=== PATIENT | male | born 1965 | race Two or more races ===

== ENCOUNTER 2023-02-24 11:36 | Emergency (ER) | payer OTHER ==
[~2023-02-24] VITALS: Ht 180.3 cm; Wt 82.0 kg
[2023-02-24 11:58] VITALS: TEMP 98; O2SAT 98
[2023-02-24 12:03] VITALS: BP 112/86; PULSE 95; RESP 17
[2023-02-24] MEDS ORDERED: IBUPROFEN 600MG TABLET PO STA (12:03)
[2023-02-24] MEDS ORDERED: VANCOMYCIN 1G PREMIX 200 ML IV ONE (12:15)
[2023-02-24] MEDS ORDERED: BACITRACIN ZINC OINT UDPKT TOP ONE (12:30)
[2023-02-24] MEDS ORDERED: LIDOCAINE HCL/EPINEPHRINE 1%-EPI 1:100,000 20 ML VIAL INFIL ONE (12:30)
[2023-02-24 12:44] LABS: BASOPHILS % 0.1 % (0.0-2.0); EOSINOPHILS % 1.8 % (0.0-5.0); HEMATOCRIT. 39.6 % (42.0-52.0); HEMOGLOBIN. 13.7 g/dL (14.0-18.0); LYMPHOCYTES % 7.5 % (20.0-50.0); MEAN CORPUSCULAR HEMOGLOBIN 32.8 pg (28.0-32.0); MEAN CORPUSCULAR HGB CONC 34.7 g/dL (31.0-37.0); MEAN CORPUSCULAR VOLUME 94.7 fL (80.0-94.0); MEAN PLATELET VOLUME 7.9 fl (7.4-10.4); MONOCYTES % 6.7 % (2.0-8.0); NEUTROPHILS % 83.9 % (40.0-76.0); PLATELET 263 x1000/uL (130-400); RED BLOOD CELL COUNT 4.19 mill/uL (4.7-6.1); RED CELL DISTRIBUTION WIDTH 13.5 % (11.6-14.6); WHITE BLOOD COUNT 8.8 x1000/uL (4.5-11.0)
[2023-02-24] MEDS ORDERED: SULFAMETHOXAZOLE/TRIMETHOPRIM 800/160MG TABLET PO ONE (12:45)
[2023-02-24 13:52] LABS: CHLORIDE 106 mEq/L (98-107); INDEX HEMOLYSI 1 (1-3); INDEX ICTERIC 1 (1-4); INDEX LIPEMIC 1 (1-3); POTASSIUM 4.6 mEq/L (3.5-5.1); SODIUM 137 mEq/L (136-145)
[2023-02-24] MEDS ORDERED: SULF1TAB48 MT (13:57)
[2023-02-24 14:45] LABS: ALANINE AMINOTRANSFERASE 40 IU/L (13-61); ASPARTATE AMINOTRANSFERASE 39 IU/L (15-37); BILIRUBIN TOTAL 0.4 mg/dL (0.1-1.0); CALCIUM 8.8 mg/dL (8.5-10.1); CARBON DIOXIDE 25 mEq/L (21-32); CREATININE 0.7 mg/dL (0.6-1.3); PROTEIN TOTAL 7.1 g/dL (6.0-8.3); UREA NITROGEN BLOOD 10 mg/dL (7-21)
[2023-02-24 15:31] LABS: GLUCOSE 95 mg/dL (70-105)
== END 2023-02-24 14:22 ==
LOC: ER 11:36
DX: L02.413 Cutaneous abscess of right upper limb (principal)
CPT/HCPCS: 80053; 85025; 36415; 84145; 93971; 73080; 73090; 99284; J3490; Z7610 ×4